=== PATIENT | female | born 1945 | race Caucasian/White ===

== ENCOUNTER 2024-12-01 19:09 | Observation (INO) | payer OTHER, SELFPAY ==
[2024-12-01] VITALS (9 sets, daily range): BP systolic 112–184; BP diastolic 73–126; BMI 21.5; BMI 21.9
--- NOTE | 2024-12-01 17:46 | ED.GENMED ---
History of Present Illness
General
Chief Complaint: Failure to Thrive
Source: patient and ambulance crew
Exam Limitations: altered mental status
Time Seen by Provider: 12/01/24 17:12
History of Present Illness
History of Present Illness:
79-year-old female from home presents with a failure to thrive, apparently having trouble caring for self, family is en route by report she not eating, nurse states she was covered in loose stool, here she is oriented to person knows she is at the
hospital moves all extremities
Discussed with son, for the past year his mother's had subacute failure to thrive not eating or drinking several falls seen by neurology area on aging has been notified son does not believe she can live independently anymore--- son shares at home
with his mother
Past History
Past History
ED Past Medical History: HTN and Hypercholesterolemia
ED Past Surgical History: , Gynecological (Hysterectomy), Orthopedic (laminectomy X 2), Tonsilectomy, Urological (right nephrectomy) and Other (cataracts)
Social History
Tobacco: Former smoker
Alcohol: None
Drug: None
Personal:
Living: alone
Employment: Not employed
Review of Systems
Review of Systems
Unable to obtain full review of systems at this time due to: due to acuity
All Other Systems: Not applicable
Phy Exam
Physical Exam
Physical Exam:
Physical Exam
General: 79 female nontoxic
Neck: Dry lips
Heart: s1/s2 regular rate and rhythm, no murmur. equal radial pulses.
Lungs: no acute respiratory distress. clear bilaterally
Abdomen: Nontender
Neuro: Moves all extremities knows her name knows she is at the hospital
Skin: no rash
Psychiatric: cooperative
Extremities: Dried liquid stool in her lower extremity
Course
Orders/Labs/Results
Orders:
Orders
12/01/24 17:41
COVID-19 Antigen Urgent
Source: Nasal Swab
Complete Blood Count/With Diff Urgent
Comprehensive Metabolic Panel Urgent
Creatine Phosphokinase Urgent
Comment: ADDON
Urinalysis Reflex To Culture Urgent
Date Specimen was Collected: 12/01/24
Time Specimen was Collected: 17:39
Urine Microscopic Reflex Cult Urgent
12/01/24 17:44
INF RAPID [Influenza A+B Rapid Molecular] Urgent
SHARITA Source: Nasal Swab
Specimen Description:
Date Specimen was Collected: 12/01/24
Time Specimen was Collected: 17:39
12/01/24 17:48
Add On- LAB Urgent
Tests Added?: cpk
0.9% Sodium Chloride 1000 ml [Nss] 1,000 ml IV BOLUS
12/01/24 18:24
CT Head W/o Iv Contrast Urgent
Comment:
Reason For Exam: falls
12/01/24 18:46
Admit/Transfer Patient As Directed
Co-Sign Provider:
Level of Care: Observation services
Assign to:: Medical/Surgical
Physician / Group: htay
Diagnosis: dehydration
PRN Pain Medication Management As Directed
May give lesser potent ordered pain med per pt: Yes
preference::
Protocol:: Medication orders for pain may be administered in a
manner that supports deferring to patient preference
when the pt is:
- Requesting an ordered lesser potent pain medication.
Least to most potent pain medications are defined
as: acetaminophen < NSAID < tramadol < opioids
(morphine, oxycodone, hydromorphone).
- Requesting a lesser dose of the same medication IF
ORDERED.
- Requesting a less intrusive route of administration
if both routes are prescribed by the provider (PO <
IV).
12/01/24 18:47
Code Status As Directed
Resuscitation Status: Full Code
Abnormal Lab Results
12/01/24
17:41
RBC 5.99 H 10^6/uL
(4.20-5.40)
Hgb 17.7 H g/dL
(12.0-16.0)
Hct 51.5 H %
(37.0-47.0)
Absolute Neuts (auto) 8.6 H 10^3/uL
(1.4-6.5)
Absolute Monos (auto) 0.7 H 10^3/uL
(0.1-0.6)
Neutrophils % 80.6 H %
(42.2-75.2)
Lymphocytes % 11.8 L %
(20.5-51.1)
BUN 53 H mg/dl
(7-17)
Creatinine 1.2 H mg/dL
(0.6-1.0)
Calcium 11.2 H mg/dl
(8.4-10.2)
Total Bilirubin 2.5 H mg/dl
(0.2-1.3)
AST 43 H U/L
(14-36)
Creatine Kinase 237 H U/L
(30-135)
Urine Ketones 1+ A
(Negative)
Urine Bilirubin 1+ A
(Negative)
Urine Urobilinogen 2+ A
(Neg - 1+)
Leukocyte Esterase Rfl Trace A
(Negative)
12/01/24 17:41
12/01/24 17:41
Vital Signs
Initial and Last Documented VS:
Initial Vital Signs
Temp Pulse Resp BP Pulse Ox
97.8 F 86 20 172/126 97
12/01/24 17:21 12/01/24 17:21 12/01/24 17:21 12/01/24 17:21 12/01/24 17:21
Last Documented Vital Signs
Temp Pulse Resp BP Pulse Ox
97.8 F 74 20 176/98 99
12/01/24 17:21 12/01/24 17:21 12/01/24 17:21 12/01/24 17:21 12/01/24 17:21
MDM/Problems Addressed
Differential Diagnosis Includes:
Dehydration failure to thrive UTI electrolyte abnormality
MDM/Problems Addressed:
Failure to thrive
*Critical Care Note
Total Time (30-74mins, 75-104mins- exclusive of procedures): Not Applicable
Update Note
Update Note:
Labs noted, urine pending, suspect she is dehydrated, due to her history will check CT head, will require admission,
ED Attending Note
-
Portions of this chart may have been created with voice recognition software.� Occasional wrong word or��sound alike� substitutions may have occurred due to the inherent limitations of voice recognition software.
Discharge Plan
Departure
Patient Disposition: Admit
Date of Disposition: 12/01/24
Time of Disposition: 18:37
Admit to: Med/Surg
Presentation/result/management discussed w/ accepting MD/DO: Hospitalist
Patient with high blood pressure during this ER visit?: No
Condition: Fair
Discharge Problem:
Dehydration
Prescriptions:
No Action
Unobtainable
0
Interventions
Interventions:
*Risk Screen - Suicide Last Done: 12/01/24 17:21
*General Assessment Last Done: 12/01/24 17:21
*Neglect/Abuse Screening Last Done: 12/01/24 17:21
*ED COVID-19 Vaccine History Last Done: 12/01/24 17:37
Discharge Date and Time
Print Language: VINCENTIAN
[2024-12-01 17:56] LABS: % Basophils 0.3 % (0-2); % Eosinophils 0.2 % (0-6); % Immature Granulocytes 0.3 % (0-0.5); % Lymphocytes 11.8 % (20.5-51.1); % Monocytes 6.8 % (1.7-9.3); % Neutrophils 80.6 % (42.2-75.2); Absolute Lymphocytes 1.3 10^3/uL (1.2-3.4); Absolute Monocytes 0.7 10^3/uL (0.1-0.6); Absolute Neutrophils 8.6 10^3/uL (1.4-6.5); Hematocrit 51.5 % (37.0-47.0); Hemoglobin 17.7 g/dL (12.0-16.0); Mean Corp Hgb Conc. 34.4 g/dL (33.0-37.0); Mean Corpuscular Hgb 29.5 pg (27.0-31.0); Nucleated Red Blood Cells % 0 %; Platelet Count 206 10^3/uL (130-400); Red Blood Cell Count 5.99 10^6/uL (4.20-5.40); Red Cell Dist. Width 13.8 % (11.5-14.5); White Blood Cell Count 10.7 10^3/uL (4.8-10.8)
[2024-12-01] MEDS: NSS 1000 IV (18:05)
[2024-12-01 18:17] LABS: ALT (SGPT) 21 U/L (0-35); AST (SGOT) 43 U/L (14-36); Albumin 4.4 g/dl (3.5-5.0); Alkaline Phosphatase 67 U/L (38-126); Blood Urea Nitrogen 53 mg/dl (7-17); Calcium 11.2 mg/dl (8.4-10.2); Carbon Dioxide 26 mmol/L (22-30); Chloride 98 mmol/L (98-107); Estimated Creatinine Clearance 43 ml/min; Glucose 89 mg/dl (70-99); Potassium 4.1 mmol/L (3.5-5.1); Sodium 139 mmol/L (135-145); Total Bilirubin 2.5 mg/dl (0.2-1.3); Total Protein 7.5 g/dl (6.3-8.2); eGFR 46.62
[2024-12-01 18:18] LABS: Creatine Phosphokinase 237 U/L (30-135)
[2024-12-01 18:23] LABS: COVID-19 Antigen Negative (Negative)
[2024-12-01 18:45] LABS: Urine Albumin Trace (Neg - Trace); Urine Bilirubin 1+ (Negative); Urine Character Clear (Clear); Urine Color Amber; Urine Glucose Negative (Negative); Urine Ketone 1+ (Negative); Urine Leukocyte Trace (Negative); Urine Nitrite Negative (Negative); Urine Occult Blood Negative (Negative); Urine Urobilinogen 2+ (Neg - 1+)
--- NOTE | 2024-12-01 18:52 | PHANOTE ---
med rec tech(12/01/24)-Unable to know what medications patient has been taking, if any. Patient unable to interview, family does not know how long since she last took medications. [facility] shows Donepezil 10mg HS filled in June for 90 days.
--- NOTE | 2024-12-01 19:17 | HPS.HSE ---
Addendum entered and electronically signed by Zaid Miranda MD 12/01/24 19:43:
DVT Px: SQH
DNR per sone at bed side <del>Full</del> <del>code</del>
Obs MS
Original Note:
Family Physician
-
Family Physician: Charity Araujo
Chief Complaint
-
son found her siting on the couch for uncertain duration and confused
History of Present Illness
HPI
79F from home, lives with son in split house HX chr FTT, HTN, HLD, Rt Nephrectomy at Home seen at ER;
- son found her siting on the couch for uncertain duration and confused
- denied pain or discomfort
- son wants placement
Per son account:
- Son and patient lives [facility] but split house
- son noted declining cognitive function and ambulatory funtion over the years
- she lives on peanut butter and cracker , does not cook
- able to walk around short distance in the house
- she is not taking any of her meds and son is not supervising the daily meds
Medical History
Past Medical History
Past Medical History: Reports HTN, Hypercholesterolemia and Other (chr FTT )
Past Surgical History: Reports Other
Social History
Unable to obtain full social history at this time due to: Other
Tobacco: Other
Alcohol: Other
Personal: Other
Living: Alone (vs son live with her ???)
Family History
Family History: Not pertinent
Allergies / Home Medications
Allergies reflects when Allergies were last updated in [facility].
Home Medications with original date entered in [facility]
Allergy/Medication List:
Home Medications Table - record
�Medication �Instructions �Recorded �Confirmed
Unobtainable 12/01/24 12/01/24
If medication reconciliation has not been performed, why?: Medication List N/A
Review of Systems
-
Constitutional: Reports No Symptoms
EENT: Reports No Symptoms
Respiratory: Reports No Symptoms
Cardiac: Reports No Symptoms
Abdomen/GI: Reports No Symptoms
: Reports No Symptoms
Musculoskeletal: Reports No Symptoms
Skin: Reports No Symptoms
Neurological: Reports No Symptoms
Endocrine: Reports No Symptoms
Hematologic/Lymphatic: Reports No Symptoms
Psych: Reports No Symptoms
Physical Exam
Vital Signs
Vital Signs
Temp Pulse Resp BP Pulse Ox
97.8 F 74 20 176/98 99
12/01/24 17:21 12/01/24 17:21 12/01/24 17:21 12/01/24 17:21 12/01/24 17:21
Physical Exam
General: Well Developed, Well Nourished and No Apparent Distress
HEENT: NormoCephalic, Moist mucous membranes and Atraumatic
Respiratory: Clear
Cardiac: S1/S2 and Regular Rhythm; No Murmur or Rub
GI: Soft, Non Tender, Non Distended and Normal Bowel Sounds; No Organomegaly
Rectal: Deferred by Provider
Musculoskeletal: No Clubbing, No Cyanosis and No Edema
Skin: No Rash
Neuro: Nonfocal/grossly intact
Psych: Calm and Confused; No Agitated
Laboratory Results
-
12/01/24 17:41
12/01/24 17:41
Laboratory Results
Total Bilirubin 2.5 mg/dl (0.2-1.3) H 12/01/24 17:41
AST 43 U/L (14-36) H 12/01/24 17:41
ALT 21 U/L (0-35) 12/01/24 17:41
Alkaline Phosphatase 67 U/L (38-126) 12/01/24 17:41
Data Reviewed
-
Diagnostic Radiology: Other (pending HCT )
Lab Data: Labs Reviewed by me
Impression/Plan
-
Vital Signs
Temp Pulse Resp BP Pulse Ox
97.8 F 74 20 176/98 99
12/01/24 17:21 12/01/24 17:21 12/01/24 17:21 12/01/24 17:21 12/01/24 17:21
Data
Laboratory Tests
12/05/23 12/05/23 12/01/24
16:07 16:09 17:41
WBC 10.7
Hgb 16.0 17.7 H
BUN 14 53 H
Creatinine 0.9 1.2 H
Total Bilirubin 1.0 2.5 H
AST 40 H 43 H
Creatine Kinase 237 H
Pending HCT
Pending to complete UA
NEG Covid
NEG Flu A & B
NO Prior hospitalist admission:
ASSESSMENT & PLAN
Pending Rx reconciliation
Chr FTT at home
Underlying unestablished cognitive disorder
- Son and patient lives in [facility] but split house
- son noted declining cognitive function and ambulatory function over the years
- she lives on peanut butter and cracker , does not cook
- able to walk around short distance in the house
- she is not taking any of her Meds and son is not supervising the daily Meds
- OT consult for BCAT ( Brief cognitive function assessment
- CRM consult for safe DC panning
- HCT pending per ER
BELEN due to dehydration and prolonged fall on the floor of unknown durationn
Minimal Rhabdo( elevated CPK, elevated AST and elevated TB )
- s/p IV NS 1 L
- cont IV NS 60/H
- f/u Cr, CPKs and AST
- PT/OT
Systolic HTN
[facility] HTN
- pending Rx reconciliation
- start amlodipine 5mg daily
- add IV Hydralazine PRN for SBP > 165/ DBP > 110
HLD
- lipid profile
DVT Px: SQH
Full code
Obs MS
[2024-12-01 19:36] LABS: Urine Bacteria Moderate (Negative); Urine Red Blood Cell 0-2 /HPF (0-2); Urine Squamous Cell >30 /LPF (Few)
[2024-12-01] MEDS: NORVASC 5 MG PO (20:23)
[2024-12-01] MEDS: TYLENOL 650 MG PO (23:39)
[2024-12-02] MEDS: NSS 1000 IV ×3 (00:08→18:22)
[2024-12-02 00:53] VITALS: BP 167/87
[2024-12-02] MEDS: APRESOLINE 5 MG IV (01:00)
--- NOTE | 2024-12-02 04:49 | PTCARENOTE ---
12/01 598 late entry: received pt from ER. no family with patient at this time. Pt oriented x1, confused conversation. attempted to orient pt to room and POC, but unable d/t pt cognitive level. Bed Alarm placed on bed. Pt very unkept. hair noted to
be matted to head. bedside shampoo done, water noted to be very dirty/harrell in color after washing hair. unable to unmat
[2024-12-02 08:26] VITALS: BP 164/87
[2024-12-02] MEDS: NORVASC 5 MG PO (08:48)
[2024-12-02 10:36] LABS: Hematocrit 41.6 % (37.0-47.0); Hemoglobin 14.5 g/dL (12.0-16.0); Mean Corp Hgb Conc. 34.9 g/dL (33.0-37.0); Mean Corpuscular Hgb 29.7 pg (27.0-31.0); Mean Corpuscular Volume 85.1 fL (81.0-99.0); Mean Platelet Volume 10.4 fL (7.4-10.4); Platelet Count 143 10^3/uL (130-400); Red Blood Cell Count 4.89 10^6/uL (4.20-5.40); Red Cell Dist. Width 13.6 % (11.5-14.5); White Blood Cell Count 10.2 10^3/uL (4.8-10.8)
[2024-12-02 10:45] LABS: ALT (SGPT) 17 U/L (0-35); AST (SGOT) 45 U/L (14-36); Albumin 3.3 g/dl (3.5-5.0); Alkaline Phosphatase 52 U/L (38-126); Creatine Phosphokinase 482 U/L (30-135); Direct Bilirubin 0.9 mg/dl (0.0-0.4); HDL Cholesterol 36 mg/dl; LDL Cholesterol, Calculated 104 mg/dl; Total Bilirubin 3.1 mg/dl (0.2-1.3); Total Cholesterol 165 mg/dl (50-199); Triglyceride 125 mg/dl (10-149); Very Low Density Lipoprotein 25 mg/dl (0-30)
--- NOTE | 2024-12-02 15:15 | CM ---
CM spoke at length with Radha's son. She lives on the upper level of a split level home with bathroom and kitchen. Pt's son and his live in the lower levels of the split level home. Son advised that Yasmeen has been increasingly confused,
not taking care of herself; She also has 2 cats who her son noticed have not been being fed.
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 Pt's son advised that SNF authorization will be requested from pt's insurance, and financial implications related to cost for long haul truck driver care. Once
facilities are
Referrals sent to [facility], [facility], [facility], [facility], [facility] and [facility]. [facility] is willing to consider and will contact pt's son to discuss long haul truck driver care and financial implications.
Plan: Discharge to SNF for rehab and likely long haul truck driver care. CM will continue to follow.
[2024-12-02 16:07] VITALS: BMI 21.9
[2024-12-02 16:12] VITALS: BP 170/90
[2024-12-02] MEDS: LOVENOX SC (17:27)
--- NOTE | 2024-12-02 17:53 | W.PN.HOSP.TC ---
Today's Communication/Plan
-
#FTT, BELEN, Rhabdo
-continue IVF, repeat CK level in am
#Elevated tbili, no abdominal pain
-repeat CMP in am, consider US abd and further work-up if still elevated/worsening despite IVF
#CM eval for placement
#PT eval
Assessment / Plan
Assessment / Plan
#FTT at home
#Underlying unestablished cognitive disorder
- Son and patient lives in same address but split house
- son noted declining cognitive function and ambulatory function over the years
- she lives on peanut butter and cracker , does not cook
- able to walk around short distance in the house
- she is not taking any of her Meds and son is not supervising the daily Meds
- OT consult for BCAT ( Brief cognitive function assessment )
- CRM consult for safe DC panning - discussion regarding placement options
#BELEN due to dehydration and prolonged fall on the floor of unknown duration
#Concern for Rhabdo( elevated CPK worsened from yesterday, elevated AST and elevated TB, unknown etiology )
- continue IVF at 100 mL per hour for 2 liter than re-evaluate w am labs
- continue to follow Cr, CPKs and AST / bili, consider US abdomen though pt without pain in RUQ
- PT/OT eval
#Essential HTN
- start amlodipine 5mg daily
- add IV Hydralazine PRN for SBP > 165/ DBP > 110
HLD
- lipid profile
Anticipated Discharge: 24 - 48 hours
Subjective/Interval History
-
Date of Service: December 02, 2024
The patient denies complaints at this time. She said year was 1980, and place was 'home.' No fever, no chills, no CP, no SOB.
Objective Data
-
Labs:
Laboratory Results
12/02/24
09:39
WBC 10.2
Hgb 14.5
Hct 41.6
Plt Count 143 D
Total Bilirubin 3.1 H
AST 45 H
ALT 17
Alkaline Phosphatase 52
Vital Signs:
Vital Signs
Temp Pulse Resp BP Pulse Ox
98.2 F 79 18 170/90 93
12/02/24 16:12 12/02/24 16:12 12/02/24 16:12 12/02/24 16:12 12/02/24 16:12
I&O
12/01/24 12/02/24 12/03/24
06:59 06:59 06:59
Intake Total 770 / 770
Balance 770 / 770
Review of Systems
-
Unable to obtain full review of systems at this time due to: Dementia
Physical Exam
-
General: Well Developed, Well Nourished and No Apparent Distress
HEENT: Normocephalic, Atraumatic and Moist Mucous Membranes
Respiratory: Clear to Auscultation
Cardiac: Regular Rhythm and S1/S2
GI: Soft, Nontender and Nondistended
Neuro: Awake, Alert, No Motor Deficits and Other (oriented to person only)
Psych: Calm
Data Reviewed
-
Labs: Labs Reviewed by me
[2024-12-02 21:14] LABS: Blood Urea Nitrogen 38 mg/dl (7-17); Calcium 10.2 mg/dl (8.4-10.2); Carbon Dioxide 28 mmol/L (22-30); Chloride 101 mmol/L (98-107); Estimated Creatinine Clearance 48 ml/min; Glucose 82 mg/dl (70-99); Potassium 3.4 mmol/L (3.5-5.1); Sodium 136 mmol/L (135-145); eGFR 51.75
[2024-12-02 23:13] VITALS: BP 120/74
[2024-12-03] MEDS: NSS 1000 IV (05:29)
[2024-12-03 07:48] LABS: ALT (SGPT) 19 U/L (0-35); AST (SGOT) 60 U/L (14-36); Alkaline Phosphatase 50 U/L (38-126); Blood Urea Nitrogen 32 mg/dl (7-17); Calcium 9.4 mg/dl (8.4-10.2); Carbon Dioxide 26 mmol/L (22-30); Chloride 106 mmol/L (98-107); Estimated Creatinine Clearance 48 ml/min; Glucose 96 mg/dl (70-99); Potassium 3.2 mmol/L (3.5-5.1); Sodium 140 mmol/L (135-145); Total Bilirubin 1.8 mg/dl (0.2-1.3); Total CK 660 U/L (30-135); Total Protein 5.6 g/dl (6.3-8.2); eGFR 51.75
[2024-12-03 08:15] LABS: CKMB 4.3 ng/ml (0.0-3.4)
[2024-12-03 08:16] VITALS: BP 111/64
[2024-12-03] MEDS: NORVASC 5 MG PO (09:05)
[2024-12-03] MEDS: KCL 40 MEQ PO (09:05)
--- NOTE | 2024-12-03 09:41 | W.PN.HOSP.TC ---
Today's Communication/Plan
-
see A/P
Assessment / Plan
Assessment / Plan
A/P
# FTT
# Underlying unestablished cognitive disorder
CT head no acute intracranial abnormalities.
urine culture no growth
son noted declining cognitive function and ambulatory function of pt over years. She lives on peanut butter and cracker, does not cook. Able to walk around short distance in the house
She is not taking any of her meds
PT OT recc SNF
# Mild BELEN, possibly due to dehydration and prolonged fall on the floor of unknown duration
# Mild Rhabdo
Follow CPK level
Follow LFT level
s/p IVF, observe off additional IVF
PT OT recc SNF
# Essential HTN
started amlodipine, adjust to 2.5mg daily
IV Hydralazine PRN for SBP > 165/ DBP > 110
# HLD
LDL 104
would not start statin with current mild rhabdo
DVT ppx: Lovenox SQ
DNR
dispo: SNF
d/w son on the phone
total time spent 51 min
Anticipated Discharge: Within 24 hours
Subjective/Interval History
-
Date of Service: December 03, 2024
Objective Data
-
Labs:
Laboratory Results
12/03/24
07:04
Sodium 140
Potassium 3.2 L
Chloride 106
Carbon Dioxide 26
BUN 32 H
Creatinine 1.1 H
Glucose 96
Calcium 9.4
Total Bilirubin 1.8 H D
AST 60 H
ALT 19
Alkaline Phosphatase 50
Vital Signs:
Vital Signs
Temp Pulse Resp BP Pulse Ox
36.6 C 58 18 111/64 100
12/03/24 08:16 12/03/24 09:05 12/03/24 08:16 12/03/24 09:05 12/03/24 08:16
I&O
12/02/24 12/03/24 12/04/24
06:59 06:59 06:59
Intake Total 770 / 770 240 / 240
Balance 770 / 770 240 / 240
Review of Systems
-
Unable to obtain full review of systems at this time due to: Dementia
Physical Exam
-
General: Well Developed, Well Nourished, No Apparent Distress, Comfortable and Appears Chronically Ill
HEENT: Normocephalic, Atraumatic and Moist Mucous Membranes
Respiratory: Clear to Auscultation and Non Labored Respirations; Negative Accessory Resp Muscle Use
Cardiac: Regular Rhythm and S1/S2
GI: Soft, Nontender and Nondistended
Neuro: Awake, Alert and Other (oriented to person only)
Psych: Calm and Apparent Dementia
Data Reviewed
-
Labs: Labs Reviewed by me
[2024-12-03 10:17] LABS: Magnesium 2.1 mg/dl (1.6-2.3)
--- NOTE | 2024-12-03 14:12 | CM ---
[facility] is considering admission. CM was notified by Padmini, SNF liaison, and provided her with Yasmeen's son's contact information so they can speak with him about financial implications for LTC and assess ability to accept for transfer.
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
Plan: CM will continue to follow; Ambulance transport will be required at discharge due to dementia. SNF authorization will be needed once an accepting facility has been identified.
[2024-12-03 15:54] VITALS: BP 179/85
[2024-12-03] MEDS: LOVENOX 40 MG SC (16:59)
[2024-12-03] MEDS: APRESOLINE 5 MG IV (18:26)
--- NOTE | 2024-12-03 22:04 | W.PN.UPDATE ---
Update Note
Progress Note Update
Gilbert[facility]
[2024-12-03 23:16] VITALS: BP 161/79
--- NOTE | 2024-12-04 07:35 | W.PN.HOSP.TC ---
Addendum entered and electronically signed by Mercedes Grace MD, Resident 12/05/24 15:09:
Addendum on 12/05 at 14:35 by Mercedes Grace MD incorrectly entered/in error.
Addendum entered and electronically signed by Mercedes Grace MD, Resident 12/05/24 14:35:
Also discussed with son on phone call about her neurological status and son is adamant for neurology consult for a clear cognitive diagnosis for placement purposes/insurance. He states that she follows with [facility].
Addendum entered and electronically signed by Марина Miguel MD 12/04/24 13:17:
I personally performed a history and physical exam of the patient and discussed management with the resident. I reviewed the resident's note and agree with the documented findings and plan of care HPI/CC.
A/P:
# FTT
# Underlying unestablished cognitive disorder
CT head no acute intracranial abnormalities.
urine culture no growth
son noted declining cognitive function and ambulatory function over years. She lives on peanut butter and cracker, does not cook. Able to walk around short distance in the house
She is not taking any of her meds
PT OT recc SNF
# Mild BELEN, possibly due to dehydration and prolonged fall on the floor of unknown duration
# Mild Rhabdo
s/p IVF, observe off additional IVF
PT OT recc SNF
# Essential HTN
started amlodipine, cont 5 mg
IV Hydralazine PRN for SBP > 165/ DBP > 110
# HLD
LDL 104
would not start statin with current mild rhabdo
DVT ppx: Lovenox SQ
DNR
dispo: SNF
Original Note:
Today's Communication/Plan
-
medsitter discontinued
dispo pending to snf
Assessment / Plan
Assessment / Plan
Impression:This is a 79 year old female from home who lives with son with PMH of HX chr FTT, HTN, HLD, Rt Nephrectomy who presented to ER with confusion.
Assessment/Plan:
# FTT
# Underlying unestablished cognitive disorder
-CT head no acute intracranial abnormalities.
-urine culture no growth
-Son noted declining cognitive function and ambulatory function of pt over years. Able to walk around short distance in the house. She is not taking any of her meds
-discontinue medsitter
-PT OT recc SNF
# Mild BELEN, possibly due to dehydration and prolonged fall on the floor of unknown duration
# Mild Rhabdo
-CPK levels decreasing
-follow LFTs
-s/p IVF, observe off additional IVF
-PT OT recc SNF
# Essential HTN
-Continue amlodipine
-IV Hydralazine PRN for SBP > 165/ DBP > 110
# HLD
-LDL 104
-would not start statin with current mild rhabdo
DVT ppx: Lovenox SQ
DNR
dispo: SNF
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
Anticipated Discharge: 24 - 48 hours
Subjective/Interval History
-
Date of Service: December 04, 2024
Patient feels fine today with no acute concerns.
Objective Data
-
Labs:
Laboratory Results
12/04/24
06:00
Sodium Pending
Potassium Pending
Chloride Pending
Carbon Dioxide Pending
BUN Pending
Creatinine Pending
Glucose Pending
Calcium Pending
Total Bilirubin Pending
AST Pending
ALT Pending
Alkaline Phosphatase Pending
Vital Signs:
Vital Signs
Temp Pulse Resp BP Pulse Ox
98.0 F 89 18 161/79 94
12/03/24 23:16 12/03/24 23:16 12/03/24 23:16 12/03/24 23:16 12/03/24 23:16
I&O
12/03/24 12/04/24 12/05/24
06:59 06:59 06:59
Intake Total 240 / 240
Balance 240 / 240
Review of Systems
-
All other systems: Reviewed and negative
Physical Exam
-
General: No Apparent Distress
HEENT: Normocephalic
Respiratory: Clear to Auscultation
Cardiac: Regular Rhythm and S1/S2; Negative Murmur
GI: Soft, Nontender and Nondistended
Musculoskeletal: No Edema
Skin: Warm and Dry
Neuro: Awake, Alert and Oriented
[2024-12-04 07:36] VITALS: BP 164/75
[2024-12-04] MEDS: NORVASC 2.5 MG PO (08:18)
[2024-12-04 10:33] LABS: ALT (SGPT) 20 U/L (0-35); AST (SGOT) 69 U/L (14-36); Albumin 2.9 g/dl (3.5-5.0); Alkaline Phosphatase 46 U/L (38-126); Blood Urea Nitrogen 20 mg/dl (7-17); Calcium 9.3 mg/dl (8.4-10.2); Carbon Dioxide 29 mmol/L (22-30); Chloride 103 mmol/L (98-107); Creatine Phosphokinase 520 U/L (30-135); Estimated Creatinine Clearance 59 ml/min; Glucose 84 mg/dl (70-99); Potassium 3.5 mmol/L (3.5-5.1); Sodium 137 mmol/L (135-145); Total Bilirubin 1.6 mg/dl (0.2-1.3); Total Protein 5.4 g/dl (6.3-8.2); eGFR > 60.00
--- NOTE | 2024-12-04 11:02 | CM ---
Addendum entered by Nubia Bosch 12/04/24 15:07:
Spoke w/ Hernandez regarding facilities. [facility] interested in [facility].
Spoke w/ [facility]- do not have any beds at this time in their memory care unit as pt has underlying cognitive impairments.
CM sent additional referral to [facility] to review for poss admission. Per admission, will contact Hernandez to review. KALEB explained that [facility] does not have a skilled rehab unit so he will still need to review accepting facilities.
Original Note:
Chart reviewed for d/c planning.
CM spoke w/ pt's son, Hernandez, regarding d/c plan. Pt is being recommended for SNF and plan is to transition to LTC.
CM informed Hernandez that a few places have accepted or are willing to accept pt at d/c. Hernandez stated he briefly spoke w/ someone from [facility] yesterday but will need to call back to further discuss financials.
Hernandez requested an email w/ list of places that accepted pt. CM sent email as requested. CM encouraged Hernandez to initiate outreach to facilities to review information on facility and if there's any interest. CM informed Hernandez pt is close to d/c
and will need to confirm facility.
Will need auth
Plan: SNF w/ transition to LTC; pending chosen facility
[2024-12-04] MEDS: KCL 270 MEQ IV (13:49)
[2024-12-04 15:30] VITALS: BP 133/78
[2024-12-04] MEDS: LOVENOX SC (17:12)
[2024-12-04] MEDS: SEROQUEL 25 MG PO (20:11)
[2024-12-04 23:22] VITALS: BP 142/77
[2024-12-05 07:13] VITALS: BP 142/80
--- NOTE | 2024-12-05 07:26 | W.PN.HOSP.TC ---
Addendum entered and electronically signed by Марина Miguel MD 12/05/24 15:09:
I personally performed a history and physical exam of the patient and discussed management with the resident. I reviewed the resident's note and agree with the documented findings and plan of care HPI/CC.
A/P:
# FTT
# Underlying unestablished cognitive disorder /likely underlying dementia
CT head no acute intracranial abnormalities.
urine culture no growth
son noted declining cognitive function and ambulatory function over years. She lives on peanut butter and cracker, does not cook. Able to walk around short distance in the house
She is not taking any of her meds
Seroquel HS added for
PT OT recc SNF
# Mild BELEN, possibly due to dehydration and prolonged fall on the floor of unknown duration
# Mild Rhabdo
s/p IVF, observe off additional IVF
CPK improving
PT OT recc SNF
# Essential HTN
started amlodipine, cont 5 mg
IV Hydralazine PRN for SBP > 165/ DBP > 110
# HLD
LDL 104
would not start statin with current mild rhabdo
DVT ppx: Lovenox SQ
DNR
dispo: SNF
Original Note:
Today's Communication/Plan
-
Neurology consult
Discontinue med sitter
Assessment / Plan
Assessment / Plan
Impression:This is a 79 year old female from home who lives with son with PMH of HX chr FTT, HTN, HLD, Rt Nephrectomy who presented to ER with confusion.
Assessment/Plan:
# FTT
# Underlying unestablished cognitive disorder
-CT head no acute intracranial abnormalities.
-urine culture no growth
-Son noted declining cognitive function and ambulatory function of pt over years. Able to walk around short distance in the house. She is not taking any of her meds
-1/9: med sitter d/c in AM-->Patient had an episode of severe agitation, Seroquel taken by pt but Haldol ordered (but not used)
-Patient is much more calm today, Seroquel will be given at a earlier dose to avoid sundowning. Will discontinue med sitter.
-PT OT recc SNF
-Neurology consult placed
-Dispo pending to SNF
# Mild BELEN, possibly due to dehydration and prolonged fall on the floor of unknown duration
# Mild Rhabdo
-CPK levels decreasing
-follow LFTs
-s/p IVF, observe off additional IVF
-PT OT recc SNF
# Essential HTN
-Continue amlodipine
-IV Hydralazine PRN for SBP > 165/ DBP > 110
# HLD
-LDL 104
-would not start statin with current mild rhabdo
discussed with son on a extensive phone call about patient treatment plan and son is asking for neurology consult for a cognitive diagnosis for dispo placement purposes/insurance. He states that she follows with [facility].
DVT ppx: Lovenox SQ
DNR
dispo: SNF
Anticipated Discharge: 24 - 48 hours
Subjective/Interval History
-
Date of Service: December 05, 2024
Patient is much more calm today
Objective Data
-
Labs:
Laboratory Results
12/05/24
07:00
Sodium Pending
Potassium Pending
Chloride Pending
Carbon Dioxide Pending
BUN Pending
Creatinine Pending
Glucose Pending
Calcium Pending
Total Bilirubin Pending
AST Pending
ALT Pending
Alkaline Phosphatase Pending
Vital Signs:
Vital Signs
Temp Pulse Resp BP Pulse Ox
98.0 F 65 18 142/77 97
12/04/24 23:22 12/04/24 23:22 12/04/24 23:22 12/04/24 23:22 12/04/24 23:22
I&O
12/04/24 12/05/24 12/06/24
06:59 06:59 06:59
Intake Total 480 / 480
Balance 480 / 480
Review of Systems
-
All other systems: Reviewed and negative
Physical Exam
-
General: No Apparent Distress
HEENT: Normocephalic
Respiratory: Clear to Auscultation
Cardiac: Regular Rhythm and S1/S2
GI: Soft, Nontender and Nondistended
Musculoskeletal: No Edema
Skin: Warm and Dry
Neuro: Awake, Alert and Oriented
Psych: Calm
[2024-12-05 07:57] LABS: ALT (SGPT) 20 U/L (0-35); AST (SGOT) 56 U/L (14-36); Albumin 2.7 g/dl (3.5-5.0); Alkaline Phosphatase 44 U/L (38-126); Blood Urea Nitrogen 21 mg/dl (7-17); Calcium 9.2 mg/dl (8.4-10.2); Carbon Dioxide 29 mmol/L (22-30); Chloride 104 mmol/L (98-107); Creatine Phosphokinase 240 U/L (30-135); Estimated Creatinine Clearance 59 ml/min; Glucose 89 mg/dl (70-99); Potassium 3.6 mmol/L (3.5-5.1); Sodium 137 mmol/L (135-145); Total Bilirubin 1.3 mg/dl (0.2-1.3); Total Protein 5.2 g/dl (6.3-8.2); eGFR > 60.00
[2024-12-05] MEDS: NORVASC 2.5 MG PO (08:02)
[2024-12-05] MEDS: SENOKOT-S 1 TABLET PO (08:23)
[2024-12-05] MEDS: MIRALAX 17 GRAMS PO (08:23)
--- NOTE | 2024-12-05 12:06 | CM ---
[facility] to assess pt today for poss acceptance. Pt's son has concerns on if pt has the finances to admit as facility is private pay.
Son will be contacted for follow up after assessment is complete.
Pt cont to need SNF. Multiple accepting facilities.
Will need auth
Plan: SNF; pending pt's son's choice of facility and auth.
--- NOTE | 2024-12-05 15:15 | PTCARENOTE ---
pt off the medsitter as per MD order.
[2024-12-05 15:57] VITALS: BP 160/79
[2024-12-05] MEDS: SEROQUEL 25 MG PO (17:27)
[2024-12-05] MEDS: LOVENOX 40 MG SC (17:27)
[2024-12-06 08:04] LABS: ALT (SGPT) 21 U/L (0-35); AST (SGOT) 50 U/L (14-36); Albumin 2.8 g/dl (3.5-5.0); Alkaline Phosphatase 49 U/L (38-126); Blood Urea Nitrogen 20 mg/dl (7-17); Calcium 9.1 mg/dl (8.4-10.2); Carbon Dioxide 29 mmol/L (22-30); Chloride 101 mmol/L (98-107); Creatine Phosphokinase 149 U/L (30-135); Estimated Creatinine Clearance 66 ml/min; Glucose 91 mg/dl (70-99); Potassium 3.6 mmol/L (3.5-5.1); Sodium 136 mmol/L (135-145); Total Bilirubin 1.3 mg/dl (0.2-1.3); Total Protein 5.3 g/dl (6.3-8.2); eGFR > 60.00
[2024-12-06 08:23] VITALS: BP 150/74
[2024-12-06] MEDS: NORVASC 2.5 MG PO (09:09)
--- NOTE | 2024-12-06 15:09 | W.PN.HOSP.TC ---
Today's Communication/Plan
-
await neuro input
SNF
Assessment / Plan
Assessment / Plan
pt is a 79 year old female
Underlying unestablished cognitive disorder /likely underlying dementia--family wants neuro consult--placed yesterday--await input--CT head no acute intracranial abnormalities--son noted declining cognitive function and ambulatory function over
years-- She lives on peanut butter and crackers, does not cook. Able to walk around short distance in the house--She is not taking any of her meds --doing well with addition of seroquel--SNF
Mild BELEN, possibly due to dehydration and prolonged fall on the floor of unknown duration--Mild Rhabdo--resolved--SNF
Essential HTN-- cont amlodipine, cont 5 mg
HLD--LDL 104--would not start statin with current mild rhabdo
DVT ppx: Lovenox SQ
DNR
Anticipated Discharge: 24 - 48 hours
Subjective/Interval History
-
Date of Service: December 06, 2024
pt denies c/o
Objective Data
-
Labs:
Laboratory Results
12/06/24
06:43
Sodium 136
Potassium 3.6
Chloride 101
Carbon Dioxide 29
BUN 20 H
Creatinine 0.8
Glucose 91
Calcium 9.1
Total Bilirubin 1.3
AST 50 H
ALT 21
Alkaline Phosphatase 49
Vital Signs:
max temp for 24 hours
12/06/24
08:23
Temp 98 F
Vital Signs
Temp Pulse Resp BP Pulse Ox
98 F 71 18 150/74 98
12/06/24 08:23 12/06/24 09:09 12/06/24 08:23 12/06/24 09:09 12/06/24 13:22
I&O
12/05/24 12/06/24 12/07/24
06:59 06:59 06:59
Intake Total 480 / 480 600 / 600
Balance 480 / 480 600 / 600
Review of Systems
-
All other systems: Reviewed and negative
Physical Exam
-
General: Well Developed, Well Nourished and No Apparent Distress
HEENT: Normocephalic and Atraumatic
Cardiac: Regular Rhythm and S1/S2; Negative Murmur
GI: Soft, Nontender, Nondistended and Normal Bowel Sounds
Musculoskeletal: No Clubbing, No Cyanosis and No Edema
Neuro: Awake and Alert
[2024-12-06 15:50] VITALS: BP 119/68
--- NOTE | 2024-12-06 15:50 | PTCARENOTE ---
Assumed care of patient at 3pm. No noted changes in assessment. Plan of care ongoing.
--- NOTE | 2024-12-06 17:10 | CON.NEURO ---
Consultation
Order
Date of Consultation: 12/06/24
Requesting Provider: Mercedes Landon MD, Resident
Reason for Consult: Encephalopathy.
Neurology Consultation Note.
HPI: This is a 79-year-old woman who presented to [facility] on 12/01/2024 provide with encephalopathy
According to patient's son Ms. Perez has had progressive cognitive and functional decline as well as change in personality and behavior for at least last year.
The patient has been under care of Neurology.
Ms. Perez has had progressive short-term memory impairment, paranoia, difficulty recognizing people and surroundings, decline in self-care and hygiene.
Her son realized that she has not been making mortgage payment over the last several months.
She has had two detected incidents involving the stove, one of which resulted in her reportedly passing out from the gas smell. The patient's ability to manage her own medications has also been compromised.
The patient has had weight loss/poor appetite. She has not seen her family doctor since February,. She had reportedly canceled her medical insurance and was unable to have neuropsychological evaluation. Patient has not had brain MRI due to severe
claustrophobia.
ER VS: 172/126, afebrile.
EKG: NSR, QTc Int : 440 ms
PDMP: none
Labs: Hematocrit�51.5, urinalysis�positive for leucocyte esterase, WBC, urine culture�negative
CT head wo contrast�generalized atrophy and subcortical hypodensities.
PMH: HTN, DLP, hypothyroidism, MCI
PSH: lumbar laminectomy, right nephrectomy, bilateral salpingo-oophorectomy, , BARB
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
FH: Father strokes and cognitive decline beginning his 60s
All:NKDA
ROS: Unable due to encephalopathy
General: Well developed. In no acute distress.
Cardio: Regular rate and rhythm without murmur. Extremities are without cyanosis or edema.
Neuro:
Mental Status: Alert, oriented to name, date of . Did not know her age, season, month, year, president. Impaired comprehension. Expressive aphasia. No hemineglect. Perseverates.
Cranial Nerves: Pupils are equally round and reactive to light. EOMs full. Blinks to threat bilaterally. No ptosis. No nystagmus. V1-V3 intact to light touch and pinprick bilaterally, symmetric. Face symmetric. Preserved hearing AU. No
dysarthria.
Motor: Moves all limbs antigravity symmetrically purposefully.
Reflexes: Bilateral grasp
Sensory: Localizes noxious stimuli
Coordination: No tremors, clonic movements.
Gait: deferred
Assessment and Plan:
I. Multifactorial encephalopathy (neurodegenerative, vascular). Severe dementia.
II. HTN
III. Family history of dementia
-Fall precautions
-Blood pressure goal�normotension
-Please check TFTs, vitamin B12
-child welfare worker consult
-I do not believe EEG would be beneficial
-May consider brain MRI with deep sedation
-Please recall neurology services any questions or concerns.
I personally reviewed all radiology and labs along with past medical records pertinent to current medical problems. Total time spent in patient care is 60 minutes.
Thank you for allowing us to participate in the care of this patient. Please do not hesitate to contact us with any questions or concern
Subjective/Objective
Subjective Data
Date of Service: December 06, 2024
Objective Data
Vital Signs
Temp Pulse Resp BP Pulse Ox
36.6 C 72 18 119/68 97
12/06/24 15:50 12/06/24 15:50 12/06/24 15:50 12/06/24 15:50 12/06/24 15:50
Lab Results
12/02/24 09:39
12/06/24 06:43
Sodium 136 mmol/L (135-145) 12/06/24 06:43
Potassium 3.6 mmol/L (3.5-5.1) 12/06/24 06:43
BUN 20 mg/dl (7-17) H 12/06/24 06:43
Glucose 91 mg/dl (70-99) 12/06/24 06:43
Calcium 9.1 mg/dl (8.4-10.2) 12/06/24 06:43
LDL Cholesterol, Calc 104 mg/dl 12/02/24 09:39
Patient Allergies
No Known Allergies Allergy (Verified 12/01/24 17:20)
Medications
-
Active Medications
Generic Name Dose Route Start Last Admin
Trade Name Freq PRN Reason Stop Dose Admin
Acetaminophen 650 mg 12/01/24 23:11 12/01/24 23:39
Acetaminophen 325 Mg Tablet PO 12/29/24 23:10 650 mg
Q4HPRN PRN Administration
mild pain/WRIGHT/temp> 100.4F
Amlodipine Besylate 2.5 mg 12/04/24 08:00 12/06/24 09:09
Amlodipine 2.5 Mg Tablet PO 01/01/25 07:59 2.5 mg
DAILY SUSAN Administration
Bisacodyl 10 mg 12/01/24 23:11
Bisacodyl 10 Mg Rectal Suppository RECTAL 12/29/24 23:10
[id number] PRN
constipation
Enoxaparin Sodium 40 mg 12/02/24 18:00 12/05/24 17:27
Enoxaparin Sodium 40 Mg/0.4 Ml Syringe SC 12/30/24 17:59 40 mg
QPM SUSAN Administration
Hydralazine HCl 5 mg 12/01/24 23:11 12/03/24 18:26
Hydralazine 20 Mg/Ml Vial IV 12/29/24 23:10 5 mg
Q6HPRN PRN Administration
hypertensin
Polyethylene Glycol 17 grams 12/01/24 23:11 12/05/24 08:23
Polyethylene Glycol Powder 17 Grams Packet PO 12/29/24 23:10 17 grams
DAILYPRN PRN Administration
constipation
Quetiapine Fumarate 25 mg 12/05/24 17:00 12/05/24 17:27
Quetiapine 25 Mg Tablet PO 01/02/25 16:59 25 mg
DAILY@1700 SUSAN Administration
Senna/Docusate Sodium 1 tablet 12/01/24 23:11 12/05/24 08:23
Docusate W/Senna (Naomi-Colace) Tablet PO 12/29/24 23:10 1 tablet
BIDPRN PRN Administration
constipation
Sodium Chloride 0 flush 12/01/24 20:00
Sodium Chloride 0.9% (Flush) Syringe IV 12/29/24 19:59
PER PROTOCOL SUSAN
Home Medications
�Medication �Instructions �Recorded
Unobtainable 12/01/24
Vital Signs and Labs
-
Vital Signs and Labs:
Vital Signs
Temp Pulse Resp BP Pulse Ox
36.6 C 72 18 119/68 97
12/06/24 15:50 12/06/24 15:50 12/06/24 15:50 12/06/24 15:50 12/06/24 15:50
Lab Results
12/02/24 09:39
12/06/24 06:43
Sodium 136 mmol/L (135-145) 12/06/24 06:43
Potassium 3.6 mmol/L (3.5-5.1) 12/06/24 06:43
BUN 20 mg/dl (7-17) H 12/06/24 06:43
Glucose 91 mg/dl (70-99) 12/06/24 06:43
Calcium 9.1 mg/dl (8.4-10.2) 12/06/24 06:43
LDL Cholesterol, Calc 104 mg/dl 12/02/24 09:39
Medications
-
Medications:
Generic Name Dose Route Start Last Admin
Trade Name Freq PRN Reason Stop Dose Admin
Acetaminophen 650 mg 12/01/24 23:11 12/01/24 23:39
Acetaminophen 325 Mg Tablet PO 12/29/24 23:10 650 mg
Q4HPRN PRN Administration
mild pain/WRIGHT/temp> 100.4F
Amlodipine Besylate 2.5 mg 12/04/24 08:00 12/06/24 09:09
Amlodipine 2.5 Mg Tablet PO 01/01/25 07:59 2.5 mg
DAILY SUSAN Administration
Bisacodyl 10 mg 12/01/24 23:11
Bisacodyl 10 Mg Rectal Suppository RECTAL 12/29/24 23:10
[id number] PRN
constipation
Enoxaparin Sodium 40 mg 12/02/24 18:00 12/05/24 17:27
Enoxaparin Sodium 40 Mg/0.4 Ml Syringe SC 12/30/24 17:59 40 mg
QPM SUSAN Administration
Hydralazine HCl 5 mg 12/01/24 23:11 12/03/24 18:26
Hydralazine 20 Mg/Ml Vial IV 12/29/24 23:10 5 mg
Q6HPRN PRN Administration
hypertensin
Polyethylene Glycol 17 grams 12/01/24 23:11 12/05/24 08:23
Polyethylene Glycol Powder 17 Grams Packet PO 12/29/24 23:10 17 grams
DAILYPRN PRN Administration
constipation
Quetiapine Fumarate 25 mg 12/05/24 17:00 12/05/24 17:27
Quetiapine 25 Mg Tablet PO 01/02/25 16:59 25 mg
DAILY@1700 SUSAN Administration
Senna/Docusate Sodium 1 tablet 12/01/24 23:11 12/05/24 08:23
Docusate W/Senna (Naomi-Colace) Tablet PO 12/29/24 23:10 1 tablet
BIDPRN PRN Administration
constipation
Sodium Chloride 0 flush 12/01/24 20:00
Sodium Chloride 0.9% (Flush) Syringe IV 12/29/24 19:59
PER PROTOCOL SUSAN
Home Medications
-
Home Medications
Unobtainable 12/01/24
[2024-12-06] MEDS: LOVENOX 40 MG SC (17:25)
[2024-12-06] MEDS: SEROQUEL 25 MG PO (17:25)
[2024-12-06 23:52] VITALS: BP 151/89
[2024-12-07 06:50] LABS: Hematocrit 37.6 % (37.0-47.0); Mean Corp Hgb Conc. 34.6 g/dL (33.0-37.0); Mean Corpuscular Hgb 29.9 pg (27.0-31.0); Mean Corpuscular Volume 86.4 fL (81.0-99.0); Mean Platelet Volume 10.5 fL (7.4-10.4); Platelet Count 103 10^3/uL (130-400); Red Blood Cell Count 4.35 10^6/uL (4.20-5.40); White Blood Cell Count 5.4 10^3/uL (4.8-10.8)
[2024-12-07 07:10] LABS: ALT (SGPT) 22 U/L (0-35); AST (SGOT) 41 U/L (14-36); Albumin 2.8 g/dl (3.5-5.0); Alkaline Phosphatase 52 U/L (38-126); Blood Urea Nitrogen 21 mg/dl (7-17); Calcium 9.4 mg/dl (8.4-10.2); Carbon Dioxide 26 mmol/L (22-30); Chloride 102 mmol/L (98-107); Estimated Creatinine Clearance 59 ml/min; Glucose 108 mg/dl (70-99); Potassium 3.7 mmol/L (3.5-5.1); Sodium 136 mmol/L (135-145); Total Bilirubin 1.1 mg/dl (0.2-1.3); Total Protein 5.4 g/dl (6.3-8.2); eGFR > 60.00
[2024-12-07 07:20] VITALS: BP 123/75
[2024-12-07] MEDS: NORVASC 2.5 MG PO (07:58)
[2024-12-07] MEDS: TYLENOL 650 MG PO (07:59)
--- NOTE | 2024-12-07 11:56 | W.PN.HOSP.TC ---
Today's Communication/Plan
-
d/c planning
Assessment / Plan
Assessment / Plan
pt is a 79 year old female
Underlying unestablished cognitive disorder /likely underlying dementia, confirmed by neuro---CT head no acute intracranial abnormalities--son noted declining cognitive function and ambulatory function over years-- She lives on peanut butter and
crackers, does not cook. Able to walk around short distance in the house--She is not taking any of her meds --doing well with addition of seroquel--SNF
Mild BELEN, possibly due to dehydration and prolonged fall on the floor of unknown duration--Mild Rhabdo--resolved--SNF
Essential HTN-- cont amlodipine, cont 5 mg
HLD--LDL 104--would not start statin with current mild rhabdo
DVT ppx: Lovenox SQ
DNR
medically stable for d/c
Anticipated Discharge: 24 - 48 hours
Subjective/Interval History
-
Date of Service: December 07, 2024
pt waiting for lunch
Objective Data
-
Labs:
Laboratory Results
12/07/24
06:05
WBC 5.4
Hgb 13.0
Hct 37.6
Plt Count 103 L D
Sodium 136
Potassium 3.7
Chloride 102
Carbon Dioxide 26
BUN 21 H
Creatinine 0.9
Glucose 108 H
Calcium 9.4
Total Bilirubin 1.1
AST 41 H
ALT 22
Alkaline Phosphatase 52
Vital Signs:
max temp for 24 hours
12/06/24
15:50
Temp 98 F
Vital Signs
Temp Pulse Resp BP Pulse Ox
97.7 F 76 18 123/75 100
12/07/24 07:20 12/07/24 07:20 12/07/24 07:20 12/07/24 07:20 12/07/24 07:20
I&O
12/06/24 12/07/24 12/08/24
06:59 06:59 06:59
Intake Total 600 / 600 240 / 240
Balance 600 / 600 240 / 240
Review of Systems
-
All other systems: Reviewed and negative
Physical Exam
-
General: Well Developed, Well Nourished and No Apparent Distress
HEENT: Normocephalic and Atraumatic
Respiratory: Clear to Auscultation; Negative Wheezes or Rhonchi
Cardiac: Regular Rhythm and S1/S2; Negative Murmur
GI: Soft, Nontender, Nondistended and Normal Bowel Sounds
Musculoskeletal: No Clubbing, No Cyanosis and No Edema
Skin: Warm
Neuro: Awake
--- NOTE | 2024-12-07 14:29 | PTCARENOTE ---
No documented BM this admission. Abdomen soft, positive bowel sounds. PRN meds for constipation to be given see MAR.
[2024-12-07 14:33] LABS: Vitamin B12 285 pg/ml (239-931)
[2024-12-07 15:00] LABS: Free T4 0.56 ng/dl (0.78-2.19)
[2024-12-07] MEDS: MIRALAX 17 GRAMS PO (15:11)
[2024-12-07] MEDS: SENOKOT-S 1 TABLET PO (15:11)
--- NOTE | 2024-12-07 15:28 | CM ---
Chart reviewed and top case assembler asked physical therapy for updated notes today patient still meets criteria for skilled placement, options reviewed with patient's son, Sir[facility], [facility] and [facility] in
[facility] but son is unsure if they will keep patient intermodal customer service.
Patient's son is interested in [facility], [facility] and Beto Lizama in admissions at [facility] called son yesterday but son feels he is being pressured into making a quick decision.
Plan; Skilled placement, needs Auth.
[2024-12-07 15:52] VITALS: BP 142/96
[2024-12-07] MEDS: SEROQUEL 25 MG PO (17:16)
[2024-12-07 23:46] VITALS: BP 151/73
[2024-12-08 07:22] VITALS: BP 132/80
[2024-12-08 08:15] LABS: Hematocrit 38.8 % (37.0-47.0); Hemoglobin 13.2 g/dL (12.0-16.0); Mean Corpuscular Hgb 29.9 pg (27.0-31.0); Mean Corpuscular Volume 87.8 fL (81.0-99.0); Mean Platelet Volume 10.4 fL (7.4-10.4); Platelet Count 101 10^3/uL (130-400); Red Blood Cell Count 4.42 10^6/uL (4.20-5.40); Red Cell Dist. Width 14.2 % (11.5-14.5); White Blood Cell Count 4.4 10^3/uL (4.8-10.8)
[2024-12-08] MEDS: NORVASC 2.5 MG PO (09:18)
[2024-12-08 15:25] VITALS: BP 169/87
--- NOTE | 2024-12-08 16:05 | CM ---
Patient seen at bedside with physicians. Patient accepted to several SNF options and CM reviewed with patient son. CM will send additional referrals at patient son request. CM also spoke with Sharlene Reynoso for additional supports to review with
patient son. CM will continue to follow for discharge planning needs.
PLan; SNF
[2024-12-08 16:31] VITALS: BP 169/81; PULSE 87; O2SAT 97
[2024-12-08] MEDS: SEROQUEL 25 MG PO (16:47)
--- NOTE | 2024-12-08 17:16 | W.PN.HOSP.TC ---
Addendum entered and electronically signed by Nancy Horton MD 12/08/24 18:38:
I saw and evaluated the patient independently. I reviewed the resident�s note and agree with findings and plan as documented by Dr. Edwards.
GENERAL: well developed, well nourished, female in no apparent distress
HEENT: NC/AT
HEART: regular rate and rhythm, +S1, +S2
LUNGS : clear to auscultation bilaterally
ABDOM: soft, nontender, nondistended, + bowel sounds
EXT: no cyanosis, clubbing, or edema
NEUROLOGIC: apparent dementia
Underlying unestablished cognitive disorder--likely underlying dementia, confirmed by neuro---CT head no acute intracranial abnormalities--son noted declining cognitive function and ambulatory function over years-- She lives on peanut butter and
crackers, does not cook. Able to walk around short distance in the house--She is not taking any of her meds --doing well with addition of seroquel--SNF
Mild BELEN, possibly due to dehydration and prolonged fall on the floor of unknown duration--Mild Rhabdo--resolved--SNF
Essential HTN-- cont amlodipine, cont 5 mg
HLD--LDL 104--would not start statin with current mild rhabdo
thrombocytopenia--follow
hypothyroid--TSH 27--start 25mcg daily and repeat TFTs in 4 weeks--B12 low normal (285), consider repletion
DVT ppx: Lovenox SQ
DNR
Original Note:
Today's Communication/Plan
-
Start levothyroxine 25 mcg once daily
Assessment / Plan
Assessment / Plan
79 year old female from home who lives with son with PMH of HX chr FTT, HTN, HLD, Rt Nephrectomy who presented to ER with confusion.
Impression
Cognitive disorder
Elevated TSH
BELEN
Rhabdomyolysis
Essential hypertension
Hyperlipidemia
Plan
Cognitive disorder
Likely due to dementia
CT head no acute intracranial abnormalities
Med sitter was discontinued
Neurology consulted�recommended MRI with deep sedation, can follow-up as outpatient
Continue Seroquel
Elevated TSH
27.10
T4�0.56
Will start levothyroxine 25 mcg once daily
BELEN�resolved
Rhabdomyolysis�resolved
Essential hypertension
Continue amlodipine
Hyperlipidemia
Would not start on statins
DVT prophylaxis
Lovenox subcu
Case management consulted�discharge to [facility]
Anticipated Discharge: Within 24 hours
Subjective/Interval History
-
Date of Service: December 08, 2024
Patient does not have any acute overnight events
Objective Data
-
Labs:
Laboratory Results
12/08/24
07:09
WBC 4.4 L
Hgb 13.2
Hct 38.8
Plt Count 101 L
Vital Signs:
Vital Signs
Temp Pulse Resp BP Pulse Ox
98.5 F 77 18 169/87 96
12/08/24 15:25 12/08/24 15:25 12/08/24 15:25 12/08/24 15:25 12/08/24 15:25
I&O
12/07/24 12/08/24 12/09/24
06:59 06:59 06:59
Intake Total 240 / 240 960 / 960
Balance 240 / 240 960 / 960
Review of Systems
-
Unable to obtain full review of systems at this time due to: Dementia
All other systems: Reviewed and negative (As per history)
Physical Exam
-
General: No Apparent Distress
HEENT: Normocephalic and Atraumatic
Respiratory: Clear to Auscultation
Cardiac: Regular Rhythm and S1/S2
GI: Soft, Nontender, Nondistended and Normal Bowel Sounds
Musculoskeletal: No Clubbing, No Cyanosis and No Edema
Skin: Warm and Dry
Neuro: Awake and Alert
[2024-12-08 23:44] VITALS: BP 109/66
[2024-12-09] MEDS: SYNTHROID 25 MCG PO (05:07)
[2024-12-09 07:20] VITALS: BP 142/63
--- NOTE | 2024-12-09 07:49 | W.PN.HOSP.TC ---
Addendum entered and electronically signed by Nancy Horton MD 12/09/24 19:45:
I saw and evaluated the patient independently. I reviewed the resident�s note and agree with findings and plan as documented by Dr. Edwards.
GENERAL: well developed, well nourished, female in no apparent distress
HEENT: NC/AT
HEART: regular rate and rhythm, +S1, +S2
LUNGS : clear to auscultation bilaterally
ABDOM: soft, nontender, nondistended, + bowel sounds
EXT: no cyanosis, clubbing, or edema
NEUROLOGIC: apparent dementia
Underlying unestablished cognitive disorder--likely underlying dementia, confirmed by neuro---CT head no acute intracranial abnormalities--son noted declining cognitive function and ambulatory function over years-- She lives on peanut butter and
crackers, does not cook. Able to walk around short distance in the house--She is not taking any of her meds --doing well with addition of seroquel--SNF
Mild BELEN, possibly due to dehydration and prolonged fall on the floor of unknown duration--Mild Rhabdo--resolved--SNF
Essential HTN-- cont amlodipine, cont 5 mg
HLD--LDL 104--would not start statin with current mild rhabdo
thrombocytopenia--follow
hypothyroid--TSH 27--start 25mcg daily and repeat TFTs in 4 weeks--B12 low normal (285), start repletion
constipation--no BM documented for 9 days--adding bowel regimen AND milk and molasses enema
DVT ppx: Lovenox SQ
DNR
D/C to SNF
Original Note:
Today's Communication/Plan
-
Discharge to SNF
Assessment / Plan
Assessment / Plan
79 year old female from home who lives with son with PMH of HX chr FTT, HTN, HLD, Rt Nephrectomy who presented to ER with confusion.
Impression
Cognitive disorder
Elevated TSH
BELEN
Rhabdomyolysis
Essential hypertension
Hyperlipidemia
Plan
Cognitive disorder
Likely due to dementia
CT head no acute intracranial abnormalities
Med sitter was discontinued
Neurology consulted�recommended MRI with deep sedation, can follow-up as outpatient
Continue Seroquel
Elevated TSH
27.10
T4�0.56
Will start levothyroxine 25 mcg once daily
BELEN�resolved
Rhabdomyolysis�resolved
Essential hypertension
Continue amlodipine
Hyperlipidemia
Would not start on statins
DVT prophylaxis
Lovenox subcu
Case management consulted�discharge to SNF
Patient accepted to several SNF options. Patient's son has not finalized yet on the facility. Tried to reach out to him multiple times to know his decision, but has not answered, will try again. CM will continue to follow for discharge planning
needs.
Anticipated Discharge: Today
Subjective/Interval History
-
Date of Service: December 09, 2024
No acute overnight issues
Objective Data
-
Labs:
Laboratory Results
12/09/24
07:10
WBC Pending
Hgb Pending
Hct Pending
Plt Count Pending
Sodium Pending
Potassium Pending
Chloride Pending
Carbon Dioxide Pending
BUN Pending
Creatinine Pending
Glucose Pending
Calcium Pending
Total Bilirubin Pending
AST Pending
ALT Pending
Alkaline Phosphatase Pending
Vital Signs:
Vital Signs
Temp Pulse Resp BP Pulse Ox
98.9 F 85 16 109/66 95
12/08/24 23:44 12/08/24 23:44 12/08/24 23:44 12/08/24 23:44 12/08/24 23:44
I&O
12/08/24 12/09/24 12/10/24
06:59 06:59 06:59
Intake Total 960 / 960 440 / 440
Balance 960 / 960 440 / 440
Review of Systems
-
All other systems: Reviewed and negative (As per history)
Physical Exam
-
General: No Apparent Distress and Comfortable
HEENT: Normocephalic, Atraumatic and Neck Non Tender; Negative Thyromegaly
Respiratory: Clear to Auscultation
Cardiac: Regular Rhythm and S1/S2
GI: Soft, Nontender, Nondistended and Normal Bowel Sounds
Musculoskeletal: No Clubbing, No Cyanosis and No Edema
Skin: Warm and Dry
Neuro: Awake and Alert
Psych: Apparent Dementia
--- NOTE | 2024-12-09 07:50 | W.DCSUMMARY ---
Addendum entered and electronically signed by Nancy Horton MD 12/10/24 14:57:
Read, reviewed, and agree. See same day progress note for additional details. Time spent coordinating care, DC planning, review of DC plan of care with resident, transition of care, review of records in EMR, med rec, consults, notes, d/w
consultants, nursing, family, and CM = 40 minutes.
Actual date of discharge is December 10, 2024. Previous documentation of discharge on December 09 is incorrect.
Original Note:
Discharge Summary
Discharge Data
Date of Admission: 12/01/24
Date of Discharge: 12/09/24
Total time spent discharging patient (in min): 40 min
-
Pending Results: No
Hospital Course
Discharging Physician : Dr. Nancy Horton, Dr. Margarette Edwards.
Disposition : SNF
Primary care physician : Charity Araujo.
Principal Discharge diagnosis : Dementia, hypothyroidism
Chronic Discharge diagnosis : BELEN, rhabdomyolysis, essential hypertension, hyperlipidemia,
Hospital Course : 79-year-old female was brought to the ER by her son who found her sitting on the couch for uncertain duration and appearing confused. She has a past medical history of hypertension, hyperlipidemia and right nephrectomy. Son noted
declining cognitive function and decline in ADLs over the years. In the ER labs showed evidence of BELEN and mild rhabdomyolysis, patient was started on IV fluids. Her statins were put on hold throughout hospital stay, concerning for rhabdomyolysis.
Her renal function and CPK improved and her IV fluids were discontinued.
Patient had bilateral lower extremity edema�ultrasound lower extremity was done which showed no evidence of DVT.
For her confusion CT head was done which showed no acute intracranial abnormalities, urinalysis�positive for leucocyte esterase, WBC but urine culture showed no growth. Neurology was consulted. Patient had an episode of agitation and was briefly
on medsitter. Seroquel was added for sundowning. Neurology recommended brain MRI with deep sedation (talked to the patient and son that they can follow-up with neurology for MRI as outpatient). Thyroid function test showed evidence of
hypothyroidism, was started on levothyroxine 25 mcg, advised to follow-up with primary care for further management and repeat thyroid function tests in 4 weeks.
Her essential hypertension has been controlled with amlodipine. PT/OT consult recommended SNF placement. Patient's vitals and labs were monitored regularly. Patient is clinically stable to be discharged to SNF.
Important imaging findings :
CT head�12/01/2024�no acute intracranial abnormalities, moderate diffuse cortical atrophy with moderate nonspecific white matter changes.
Peripheral vascular ultrasound�12/04/2024�No evidence for deep venous thrombosis in either lower extremity
Discharge Plan
-
Patient Disposition: Penitentiary/SNF
Discharge Diagnosis/Procedures: Dementia, hypothyroidism
Condition: Fair
Diet: As tolerated, Low Cholesterol and Low Sodium
Activity: As tolerated
Driving Restrictions: Not until seen by your Dr
Bathing Restrictions: None
Activity Restrictions/Additional Instructions:
Follow-up with primary care in less than a week
Follow-up with neurology.
TSH in 4 weeks.
Referrals:
Yashira Thomas MD [Active] - in one month
Charity Araujo CRNP [Family Provider] - in less than 1 week
Prescriptions:
New
quetiapine 25 mg Tablet
25 mg PO DAILY@1700 Qty: 60 0RF
acetaminophen 325 mg Tablet
650 mg PO Q4HPRN PRN (Reason: mild pain/WRIGHT/temp> 100.4F) Qty: 30 0RF
polyethylene glycol 3350 17 gram Powder In Packet
17 g PO DAILYPRN PRN (Reason: constipation) Qty: 15 0RF
sennosides-docusate sodium 8.6-50 mg Tablet
1 tab PO BIDPRN PRN (Reason: constipation) Qty: 15 0RF
amlodipine 2.5 mg Tablet
2.5 mg PO DAILY Qty: 30 0RF
levothyroxine 25 mcg Tablet
25 mcg PO DAILY @ 0600 Qty: 60 0RF
bisacodyl 10 mg Suppository
10 mg MI [id number] PRN (Reason: constipation) Qty: 10 0RF
cyanocobalamin (vitamin B-12) 1,000 mcg capsule
1,000 mcg PO DAILY Qty: 60 0RF
Discharge Orders:
Discharge Patient (As Directed); Ordered 12/09/24
Ordered By: Margarette Edwards
Discharge Date and Time
Discharge Date/Time: 12/10/24 10:45
Print Language: [place]
[2024-12-09 08:19] LABS: Hematocrit 36.5 % (37.0-47.0); Hemoglobin 12.3 g/dL (12.0-16.0); Mean Corp Hgb Conc. 33.7 g/dL (33.0-37.0); Mean Corpuscular Hgb 29.6 pg (27.0-31.0); Mean Platelet Volume 9.8 fL (7.4-10.4); Platelet Count 114 10^3/uL (130-400); Red Blood Cell Count 4.15 10^6/uL (4.20-5.40); Red Cell Dist. Width 14.3 % (11.5-14.5); White Blood Cell Count 4.6 10^3/uL (4.8-10.8)
[2024-12-09] MEDS: NORVASC 2.5 MG PO (08:29)
[2024-12-09 08:38] LABS: ALT (SGPT) 20 U/L (0-35); AST (SGOT) 31 U/L (14-36); Albumin 2.9 g/dl (3.5-5.0); Alkaline Phosphatase 59 U/L (38-126); Blood Urea Nitrogen 23 mg/dl (7-17); Calcium 9.4 mg/dl (8.4-10.2); Carbon Dioxide 26 mmol/L (22-30); Chloride 99 mmol/L (98-107); Estimated Creatinine Clearance 59 ml/min; Glucose 93 mg/dl (70-99); Sodium 134 mmol/L (135-145); Total Bilirubin 1.1 mg/dl (0.2-1.3); Total Protein 5.5 g/dl (6.3-8.2); eGFR > 60.00
[2024-12-09 15:11] VITALS: BP 130/72
--- NOTE | 2024-12-09 15:30 | CM ---
Patient seen at bedside, CM spoke with patient son x2. Patient son to work with [facility] to complete paperwork for LTC. CM will try to start auth as soon as confirmed location for transfer. Patient son aware that patient is for discharge. CM will
continue to follow for discharge planning needs.
Plan; await confirmation from [place] of patient son completion of paperwork and intiate auth request.
--- NOTE | 2024-12-09 15:54 | CM ---
Eduard Washington, liaison for [facility] agreed to accept patient after speaking with son.
[facility] NPI# [id number]
Accepting Dr Kim MARTINES NPI# [id number]
TC to [facility]
Spoke with Mohamud and transferred too nurse Sigrid
call reference# [id number]
Approved skilled rehab at [facility]
Auth# [id number]
Start date 12/09/24, LCD 12/13/24
Fax updates to [phone]
[2024-12-09] MEDS: SEROQUEL 25 MG PO (17:02)
--- NOTE | 2024-12-09 17:08 | CM ---
Patient for transfer to [place] in am. Please call report to [phone].CM will make arrangements for ambulance transportation in am. CM will continue to follow for discharge planning needs.
Plan; transfer to SNF in Am.
[2024-12-09 23:25] VITALS: BP 145/86
[2024-12-10] MEDS: SYNTHROID 25 MCG PO (05:37)
[2024-12-10 06:58] VITALS: BP 142/86
[2024-12-10 07:55] LABS: Hematocrit 37.2 % (37.0-47.0); Hemoglobin 12.8 g/dL (12.0-16.0); Mean Corp Hgb Conc. 34.4 g/dL (33.0-37.0); Mean Corpuscular Hgb 29.8 pg (27.0-31.0); Mean Corpuscular Volume 86.5 fL (81.0-99.0); Mean Platelet Volume 10.7 fL (7.4-10.4); Platelet Count 100 10^3/uL (130-400); Red Cell Dist. Width 14.2 % (11.5-14.5)
[2024-12-10] MEDS: NORVASC 2.5 MG PO (08:09)
[2024-12-10 08:26] LABS: Blood Urea Nitrogen 20 mg/dl (7-17); Calcium 9.1 mg/dl (8.4-10.2); Carbon Dioxide 27 mmol/L (22-30); Chloride 101 mmol/L (98-107); Estimated Creatinine Clearance 66 ml/min; Glucose 91 mg/dl (70-99); Potassium 4.2 mmol/L (3.5-5.1); Sodium 135 mmol/L (135-145); eGFR > 60.00
--- NOTE | 2024-12-10 08:44 | W.PN.HOSP.TC ---
Addendum entered and electronically signed by Nancy Horton MD 12/10/24 14:54:
Patient left prior to my arrival to the on the floor. Agree with plan as outlined by Dr. Edwards. Patient has been medically stable for discharge for days.
Underlying unestablished cognitive disorder--likely underlying dementia, confirmed by neuro---CT head no acute intracranial abnormalities--son noted declining cognitive function and ambulatory function over years-- She lives on peanut butter and
crackers, does not cook. Able to walk around short distance in the house--She is not taking any of her meds --doing well with addition of seroquel--SNF
Mild BELEN, possibly due to dehydration and prolonged fall on the floor of unknown duration--Mild Rhabdo--resolved--SNF
Essential HTN-- cont amlodipine, cont 5 mg
HLD--LDL 104--restart statin at d/c
thrombocytopenia--follow
hypothyroid--TSH 27--start 25mcg daily and repeat TFTs in 4 weeks--B12 low normal (285), start repletion
constipation--no BM documented for 9 days--success with bowel regimen AND milk and molasses enema
DVT ppx: Lovenox SQ
DNR
D/C to SNF
Original Note:
Today's Communication/Plan
-
Discharge to [facility]
Assessment / Plan
Assessment / Plan
79 year old female from home who lives with son with PMH of HX chr FTT, HTN, HLD, Rt Nephrectomy who presented to ER with confusion.
Impression
Cognitive disorder
Elevated TSH
BELEN
Rhabdomyolysis
Essential hypertension
Hyperlipidemia
Plan
Cognitive disorder
Likely due to dementia
CT head no acute intracranial abnormalities
Med sitter was discontinued
Neurology consulted�recommended MRI with deep sedation, can follow-up as outpatient
Continue Seroquel
Constipation
Milk of molasses enema
Patient had a bowel movement yesterday
Elevated TSH
27.10
T4�0.56
Started on levothyroxine 25 mcg once daily
BELEN�resolved
Rhabdomyolysis�resolved
Essential hypertension
Continue amlodipine
Hyperlipidemia
Would not start on statins
DVT prophylaxis
Lovenox subcu
Case management consulted�discharge to SNF today�[facility]
Patient accepted to several SNF options. Patient's son has not finalized yet on the facility. Tried to reach out to him multiple times to know his decision, but has not answered, will try again. CM will continue to follow for discharge planning
needs.
Anticipated Discharge: Today
Subjective/Interval History
-
Date of Service: December 10, 2024
Patient does not have any acute overnight issues. Patient had a bowel movement yesterday. No episodes of agitation overnight.
Objective Data
-
Labs:
Laboratory Results
12/10/24
07:19
WBC 4.0 L
Hgb 12.8
Hct 37.2
Plt Count 100 L
Sodium 135
Potassium 4.2
Chloride 101
Carbon Dioxide 27
BUN 20 H
Creatinine 0.8
Glucose 91
Calcium 9.1
Vital Signs:
Vital Signs
Temp Pulse Resp BP Pulse Ox
97.8 F 67 16 142/86 98
12/09/24 23:25 12/10/24 08:09 12/09/24 23:25 12/10/24 08:09 12/10/24 08:00
I&O
12/09/24 12/10/24 12/11/24
06:59 06:59 06:59
Intake Total 440 / 440 1200 / 1200
Balance 440 / 440 1200 / 1200
Review of Systems
-
Unable to obtain full review of systems at this time due to: Dementia
Physical Exam
-
General: No Apparent Distress
HEENT: Normocephalic and Atraumatic
Respiratory: Clear to Auscultation
Cardiac: Regular Rhythm and S1/S2
GI: Soft, Nontender, Nondistended and Normal Bowel Sounds
Skin: Warm and Dry
Neuro: Awake and Alert; Negative Oriented
--- NOTE | 2024-12-10 12:02 | PTCARENOTE ---
Pt DC at 10:00, Called [facility] pt multiple times. Nurse busy and unable to get report. left voicemail as well. no return call at this time.
== END 2024-12-10 10:45 ==
LOC: 4 EAST ACU 19:09
PROVIDERS: Internal Medicine; Registered Nurse; Student in an Organized Health Care Education/Training Program; ADMITTING PHYSICIAN Internal Medicine; ATTENDING PHYSICIAN Internal Medicine; CONSULT PHYSICIAN Psychiatry & Neurology Neurology; EMERGENCY PHYSICIAN Emergency Medicine; FAMILY PHYSICIAN Nurse Practitioner Adult Health
DX: E03.9 Hypothyroidism, unspecified (principal); F03.C2 Unspecified dementia, severe, with psychotic disturbance; F03.C11 Unspecified dementia, severe, with agitation; R41.82 Altered mental status, unspecified; M62.82 Rhabdomyolysis; K59.00 Constipation, unspecified; R62.7 Adult failure to thrive; E86.0 Dehydration; D69.6 Thrombocytopenia, unspecified; R74.8 Abnormal levels of other serum enzymes; E78.00 Pure hypercholesterolemia, unspecified; I10 Essential (primary) hypertension; N17.9 Acute kidney failure, unspecified; G93.49 Other encephalopathy; G31.9 Degenerative disease of nervous system, unspecified; W19.XXXA Unspecified fall, initial encounter; Y93.9 Activity, unspecified; Y92.009 Unspecified place in unspecified non-institutional (private) residence as the place of occurrence of the external cause; Z66 Do not resuscitate; Z82.3 Family history of stroke; Z87.891 Personal history of nicotine dependence; Z90.710 Acquired absence of both cervix and uterus; Z90.5 Acquired absence of kidney; Z11.52 Encounter for screening for COVID-19
CPT/HCPCS: 70450; 80048; 80053; 80061; 80076; 81003; 81015; 82550; 82553; 82607; 83735; 84439; 84443; 85025; 85027; 87086; 87502; 87811; 93970; 96360; 97161; 97163; 97167; 97530; 97535; 99285; G0378

== ENCOUNTER 2025-01-18 17:32 | Emergency (ER) | payer OTHER, SELFPAY ==
[2025-01-18 17:38] VITALS: BMI 21.5
[2025-01-18 17:41] VITALS: BP 139/77
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
[2025-01-18 20:39] VITALS: BP 140/69
--- NOTE | 2025-01-18 23:23 | EDRN ---
Report given to Acute Care crew
== END 2025-01-18 23:36 ==
LOC: EMR 17:32
PROVIDERS: EMERGENCY PHYSICIAN Emergency Medicine; FAMILY PHYSICIAN Family Medicine
DX: R45.1 Restlessness and agitation (principal); I10 Essential (primary) hypertension; E78.00 Pure hypercholesterolemia, unspecified; F03.94 Unspecified dementia, unspecified severity, with anxiety; Z87.891 Personal history of nicotine dependence; Z90.5 Acquired absence of kidney; Z90.710 Acquired absence of both cervix and uterus
CPT/HCPCS: 99282